=== PATIENT | female | born 1960 | race African-American/Black ===

== ENCOUNTER 2017-03-28 10:27 | Emergency (ER) | payer MEDICAID ==
[~2017-03-28] VITALS: Ht 167.6 cm; Wt 86.0 kg
[~2017-03-28 10:27] MED LIST: CARI350T PO; METO-396 PO; PRAV20TA57 PO; WARF10TA21 PO
[2017-03-28] MEDS ORDERED: ACETAMINOPHEN WITH CODEINE 300/30MG TABLET PO STA (11:31)
[2017-03-28 12:35] LABS: BASOPHILS % 0.7 % (0.0-2.0); HEMATOCRIT. 37.4 % (36.0-48.0); HEMOGLOBIN. 12.4 g/dL (12.0-16.0); LYMPHOCYTES % 17.8 % (20.0-50.0); MEAN CORPUSCULAR VOLUME 84.1 fL (81.0-99.0); MEAN PLATELET VOLUME 9.3 fl (7.4-10.4); MONOCYTES % 8.4 % (2.0-8.0); NEUTROPHILS % 72.1 % (40.0-76.0); PLATELET 219 x1000/uL (130-400); RED BLOOD CELL COUNT 4.45 mill/uL (4.2-5.4); RED CELL DISTRIBUTION WIDTH 14.2 % (11.6-14.6)
[2017-03-28 12:40] LABS: INR 3.5; PROTHROMBIN TIME 36.4 sec (9.4-11.6)
[2017-03-28 12:53] LABS: CARBON DIOXIDE 31 mEq/L (21-32); CHLORIDE 103 mEq/L (98-107)
[2017-03-28 13:05] LABS: TROPONIN I < 0.02 ng/mL (0.00-0.04)
[2017-03-28] MEDS ORDERED: POTASSIUM CHLORIDE 20MEQ TABLET SR PO ONE (13:45)
[2017-03-28 13:59] VITALS: BP 149/63
== END 2017-03-28 14:40 | disposition home or self-care (01) ==
LOC: ER 11:37
DX: R07.9 Chest pain, unspecified (principal); E87.6 Hypokalemia; I10 Essential (primary) hypertension; E78.00 Pure hypercholesterolemia, unspecified; E11.9 Type 2 diabetes mellitus without complications; J45.909 Unspecified asthma, uncomplicated; Z88.8 Allergy status to other drugs, medicaments and biological substances; Z79.01 Long term (current) use of anticoagulants
CPT/HCPCS: 36415; 71010; 80053; 84484; 85025; 85610; 93005; 99285; Z7610

== ENCOUNTER 2018-07-31 09:06 | Emergency (ER) | payer MEDICAID ==
[~2018-07-31] VITALS: Ht 167.6 cm; Wt 100.0 kg
[~2018-07-31 09:06] MED LIST changes: -CARI350T PO; +S350 PO
[2018-07-31] MEDS ORDERED: HYDROCODONE/ACETAMINOPHEN 5/325MG TABLET PO STA (11:04)
[2018-07-31 11:15] VITALS: BP 140/60
== END 2018-07-31 12:58 | disposition home or self-care (01) ==
LOC: ER 09:06
DX: S83.91XA Sprain of unspecified site of right knee, initial encounter (principal); E78.00 Pure hypercholesterolemia, unspecified; I11.9 Hypertensive heart disease without heart failure; Z79.899 Other long term (current) drug therapy; W50.2XXA Accidental twist by another person, initial encounter; Y93.89 Activity, other specified; Y92.89 Other specified places as the place of occurrence of the external cause; Y99.8 Other external cause status
CPT/HCPCS: 73560; 99283

== ENCOUNTER 2019-05-02 08:31 | Inpatient (IN) | payer MEDICAID ==
[~2019-05-02] VITALS: Ht 167.6 cm; Wt 87.1 kg
[~2019-05-02 08:31] MED LIST changes: +CARI350T28 PO; -S350 PO
[2019-05-02] MEDS ORDERED: SODIUM CHLORIDE 0.9% 1,000 ML IV ONE (17:03)
[2019-05-02] MEDS ORDERED: KETOROLAC 30MG/ML VIAL IV STA (17:03)
[2019-05-02 17:28] LABS: BASOPHILS % 0.4 % (0.0-2.0); EOSINOPHILS % 0.8 % (0.0-5.0); HEMATOCRIT. 38.7 % (36.0-48.0); LYMPHOCYTES % 16.2 % (20.0-50.0); MEAN CORPUSCULAR HEMOGLOBIN 28.7 pg (28.0-32.0); MEAN CORPUSCULAR VOLUME 85.6 fL (81.0-99.0); MEAN PLATELET VOLUME 9.3 fl (7.4-10.4); MONOCYTES % 7.4 % (2.0-8.0); NEUTROPHILS % 75.2 % (40.0-76.0); PLATELET 174 x1000/uL (130-400); RED BLOOD CELL COUNT 4.52 mill/uL (4.2-5.4); RED CELL DISTRIBUTION WIDTH 13.2 % (11.6-14.6)
[2019-05-02 17:31] LABS: CLARITY URINE TURBID (CLEAR); COLOR URINE YELLOW (YELLOW); KETONES URINE 1+ (NEGATIVE); LEUKOCYTE ESTERASE URINE 1+ (NEGATIVE); NITRITE URINE NEGATIVE (NEGATIVE); OCCULT BLOOD URINE 1+ (NEGATIVE); PH URINE 5.5 (4.5-8.0); PROTEIN URINE TRACE (NEGATIVE); SPECIFIC GRAVITY URINE 1.016 (1.005-1.030); UROBILINOGEN URINE 0.2 E.U./dL (0.2-1.0)
[2019-05-02 17:33] LABS: CHLORIDE 105 mEq/L (98-107)
[2019-05-02 20:31] LABS: INR 2.7; PARTIAL THROMBOPLASTIN TIME 46.6 sec (23.4-31.0); PROTHROMBIN TIME 26.8 sec (9.6-11.0)
[2019-05-02] MEDS ORDERED: MORPHINE SULFATE 4 MG/ML CPJ (NOT FOR IM USE) IV ONE (21:00)
[2019-05-02] MEDS ORDERED: ONDANSETRON HCL 4MG/2ML INJ IV ONE (21:00)
[2019-05-02] MEDS ORDERED: CEFTRIAXONE SODIUM 1 G/VIAL IM ONE (21:00)
[2019-05-03] MEDS ORDERED: MORPHINE SULFATE 2 MG/ML CPJ (NOT FOR IM USE) IV PRN (04:45)
[2019-05-03] MEDS ORDERED: ONDANSETRON HCL 4MG/2ML INJ IV PRN (09:30)
[2019-05-03] MEDS ORDERED: POTASSIUM CHLORIDE 20MEQ TABLET SR PO NR (09:30)
[2019-05-03] MEDS ORDERED: ACETAMINOPHEN 325MG TABLET PO PRN (09:30)
[2019-05-03 09:45] VITALS: BP 127/48
[2019-05-03] MEDS: MORPHINE SULFATE 2 MG/ML CPJ (NOT FOR IM USE) IV PRN ×3 (10:14→21:40)
[2019-05-03 12:00] VITALS: BP 121/52
[2019-05-03] MEDS ORDERED: WARF5TAB76 MT (12:01)
[2019-05-03] MEDS ORDERED: WARF10TA21 MT (12:01)
[2019-05-03] MEDS ORDERED: METO-385 MT (12:01)
[2019-05-03] MEDS ORDERED: PRAV40TA58 MT (12:02)
[2019-05-03 12:38] LABS: BASOPHILS % 0.7 % (0.0-2.0); EOSINOPHILS % 1.3 % (0.0-5.0); HEMATOCRIT. 36.4 % (36.0-48.0); HEMOGLOBIN. 12.2 g/dL (12.0-16.0); LYMPHOCYTES % 16.9 % (20.0-50.0); MEAN CORPUSCULAR HEMOGLOBIN 28.8 pg (28.0-32.0); MEAN CORPUSCULAR VOLUME 86.1 fL (81.0-99.0); MEAN PLATELET VOLUME 9.7 fl (7.4-10.4); MONOCYTES % 8.8 % (2.0-8.0); NEUTROPHILS % 72.3 % (40.0-76.0); PLATELET 162 x1000/uL (130-400); RED BLOOD CELL COUNT 4.23 mill/uL (4.2-5.4); RED CELL DISTRIBUTION WIDTH 13.5 % (11.6-14.6)
[2019-05-03 13:01] LABS: CHLORIDE 106 mEq/L (98-107)
[2019-05-03] MEDS ORDERED: METOPROLOL TARTRATE 50MG TABLET PO SCH (13:45)
[2019-05-03 16:00] VITALS: BP 118/55
[2019-05-03] MEDS ORDERED: NON FORMULARY PATIENT HOME MED XX SCH (16:00)
[2019-05-03] MEDS: SIMETHICONE 80MG TABLET CHEW PO SCH ×2 (17:25→23:39)
[2019-05-03] MEDS ORDERED: WARFARIN SODIUM 10MG TABLET PO NR (18:00)
[2019-05-03 20:00] VITALS: BP 112/48
[2019-05-03] MEDS: METOPROLOL TARTRATE 25MG TABLET PO SCH (21:39)
[2019-05-03] MEDS: ATORVASTATIN CALCIUM 40MG TABLET PO SCH (21:39)
[2019-05-03] MEDS: CEFTRIAXONE 1 G PREMIX 50 ML IV SCH (21:39)
[2019-05-04] VITALS (7 sets, daily range): BP systolic 102–129; BP diastolic 34–52
[2019-05-04] MEDS: SIMETHICONE 80MG TABLET CHEW PO SCH ×3 (05:37→17:26)
[2019-05-04 06:35] LABS: BASOPHILS % 0.6 % (0.0-2.0); EOSINOPHILS % 2.2 % (0.0-5.0); HEMOGLOBIN. 11.5 g/dL (12.0-16.0); LYMPHOCYTES % 21.1 % (20.0-50.0); MEAN CORPUSCULAR HEMOGLOBIN 29.3 pg (28.0-32.0); MEAN CORPUSCULAR VOLUME 86.1 fL (81.0-99.0); MEAN PLATELET VOLUME 10.3 fl (7.4-10.4); MONOCYTES % 8.3 % (2.0-8.0); NEUTROPHILS % 67.8 % (40.0-76.0); PLATELET 167 x1000/uL (130-400); RED BLOOD CELL COUNT 3.95 mill/uL (4.2-5.4); RED CELL DISTRIBUTION WIDTH 13.3 % (11.6-14.6)
[2019-05-04 07:30] LABS: CHLORIDE 105 mEq/L (98-107)
[2019-05-04] MEDS: METOPROLOL TARTRATE 25MG TABLET PO SCH ×2 (08:50→21:00)
[2019-05-04] MEDS: MORPHINE SULFATE 2 MG/ML CPJ (NOT FOR IM USE) IV PRN ×3 (08:50→20:10)
[2019-05-04 10:20] LABS: INR 2.5; PROTHROMBIN TIME 24.8 sec (9.6-11.0)
[2019-05-04] MEDS ORDERED: LACTULOSE 20G/30ML UDC PO SCH (13:00)
[2019-05-04] MEDS ORDERED: BISACODYL 10MG SUPP PR PRN (13:00)
[2019-05-04] MEDS ORDERED: NA PHOS,M-B/NA PHOS,DI-BA ENEMA 118ML PR PRN (13:00)
[2019-05-04] MEDS ORDERED: WARFARIN SODIUM 5MG TABLET PO NR (18:00)
[2019-05-04] MEDS: ATORVASTATIN CALCIUM 40MG TABLET PO SCH (20:09)
[2019-05-04] MEDS: CEFTRIAXONE 1 G PREMIX 50 ML IV SCH (20:09)
[2019-05-05] VITALS: BP 109/45
[2019-05-05] MEDS: SIMETHICONE 80MG TABLET CHEW PO SCH ×5 (00:18→23:03)
[2019-05-05 04:00] VITALS: BP 110/52
[2019-05-05] MEDS: MORPHINE SULFATE 2 MG/ML CPJ (NOT FOR IM USE) IV PRN ×2 (05:08→11:01)
[2019-05-05 06:38] LABS: CHLORIDE 105 mEq/L (98-107)
[2019-05-05 06:44] LABS: INR 2.3; PROTHROMBIN TIME 22.3 sec (9.6-11.0)
[2019-05-05 06:46] LABS: BASOPHILS % 0.5 % (0.0-2.0); EOSINOPHILS % 1.9 % (0.0-5.0); HEMATOCRIT. 36.6 % (36.0-48.0); HEMOGLOBIN. 12.3 g/dL (12.0-16.0); MEAN CORPUSCULAR HEMOGLOBIN 28.9 pg (28.0-32.0); MEAN CORPUSCULAR VOLUME 86.1 fL (81.0-99.0); MEAN PLATELET VOLUME 9.5 fl (7.4-10.4); MONOCYTES % 8.4 % (2.0-8.0); NEUTROPHILS % 69.2 % (40.0-76.0); PLATELET 205 x1000/uL (130-400); RED BLOOD CELL COUNT 4.25 mill/uL (4.2-5.4); RED CELL DISTRIBUTION WIDTH 13.4 % (11.6-14.6)
[2019-05-05 08:06] VITALS: BP 125/42
[2019-05-05] MEDS: METOPROLOL TARTRATE 25MG TABLET PO SCH ×2 (08:36→21:10)
[2019-05-05] MEDS ORDERED: HYDROCODONE/ACETAMINOPHEN 5/325MG TABLET PO PRN (10:45)
[2019-05-05 12:09] VITALS: BP 119/51
[2019-05-05 16:00] VITALS: BP 121/51
[2019-05-05] MEDS ORDERED: WARFARIN SODIUM 10MG TABLET PO NR (18:00)
[2019-05-05 20:00] VITALS: BP 131/62
[2019-05-05] MEDS: CEFTRIAXONE 1 G PREMIX 50 ML IV SCH (21:08)
[2019-05-05] MEDS: HYDROCODONE/ACETAMINOPHEN 5/325MG TABLET PO PRN (21:09)
[2019-05-05] MEDS: ATORVASTATIN CALCIUM 40MG TABLET PO SCH (21:09)
[2019-05-06] VITALS: BP 112/51
[2019-05-06 04:00] VITALS: BP 117/51
[2019-05-06] MEDS: SIMETHICONE 80MG TABLET CHEW PO SCH ×2 (05:47→12:00)
[2019-05-06 07:37] LABS: INR 2.2
[2019-05-06 08:00] VITALS: BP 123/56
[2019-05-06] MEDS: METOPROLOL TARTRATE 25MG TABLET PO SCH (08:36)
[2019-05-06] MEDS: MORPHINE SULFATE 2 MG/ML CPJ (NOT FOR IM USE) IV PRN (08:37)
[2019-05-06 12:00] VITALS: BP 96/45
[2019-05-06] MEDS ORDERED: HYDR-4009 MT (12:11)
[2019-05-06 13:53] VITALS: BP 123/56
[2019-05-06] MEDS: HYDROCODONE/ACETAMINOPHEN 5/325MG TABLET PO PRN (13:53)
[2019-05-06] MEDS ORDERED: WARFARIN SODIUM 7.5MG TABLET PO SCH (14:29)
== END 2019-05-06 12:04 | disposition home or self-care (01) | DRG 351 ==
LOC: ER 08:41 → 5WST 21:51 → EDBEDREQ 21:54 → ENRESERV 05-03 07:47
PROVIDERS: ADMIT Internal Medicine; ATTEND Internal Medicine
DX: M79.81 Nontraumatic hematoma of soft tissue (principal); E83.51 Hypocalcemia; E78.5 Hyperlipidemia, unspecified; N39.0 Urinary tract infection, site not specified; E87.6 Hypokalemia; E78.00 Pure hypercholesterolemia, unspecified; I10 Essential (primary) hypertension; K57.90 Diverticulosis of intestine, part unspecified, without perforation or abscess without bleeding; T45.515A Adverse effect of anticoagulants, initial encounter; Y92.89 Other specified places as the place of occurrence of the external cause; Z79.899 Other long term (current) drug therapy; Z79.01 Long term (current) use of anticoagulants; Z95.2 Presence of prosthetic heart valve
CPT/HCPCS: 36415; 71045; 74176; 80048; 80053; 81003; 83880; 84484; 85025; 93005; 93306; 96361; 96365; 96372; 96375; 96376; 99285; J0696; J1885; J2270; J2405; J7030

== ENCOUNTER 2019-11-25 22:14 | Emergency (ER) | payer BC, MEDICAID ==
[~2019-11-25] VITALS: Ht 167.6 cm; Wt 90.0 kg
[~2019-11-25 22:14] MED LIST changes: +HYDR-4009 MT; +METO-385 MT; +PRAV40TA58 MT; +WARF10TA21 MT; +WARF5TAB76 MT
[2019-11-25] MEDS ORDERED: ONDANSETRON HCL 4MG/2ML INJ IV STA (22:52)
[2019-11-25] MEDS ORDERED: MAGNESIUM/ALUMINUM HYDROXIDE/SIMETHICONE 30ML UDC PO ONE (23:00)
[2019-11-25] MEDS ORDERED: VISCOUS LIDOCAINE 2% 15 ML UDC PO ONE (23:00)
[2019-11-25] MEDS ORDERED: ASPIRIN 81MG TABLET PO ONE (23:00)
[2019-11-25] MEDS ORDERED: MECLIZINE 25MG TABLET PO ONE (23:30)
[2019-11-25] MEDS ORDERED: SODIUM CHLORIDE 0.9% 500 ML IV ONE (23:30)
[2019-11-25 23:42] LABS: BASOPHILS % 0.6 % (0.0-2.0); EOSINOPHILS % 0.6 % (0.0-5.0); HEMOGLOBIN. 11.9 g/dL (12.0-16.0); LYMPHOCYTES % 8.4 % (20.0-50.0); MEAN CORPUSCULAR HEMOGLOBIN 28.8 pg (28.0-32.0); MEAN CORPUSCULAR VOLUME 84.8 fL (81.0-99.0); MEAN PLATELET VOLUME 9.1 fl (7.4-10.4); NEUTROPHILS % 86.4 % (40.0-76.0); PLATELET 184 x1000/uL (130-400); RED BLOOD CELL COUNT 4.12 mill/uL (4.2-5.4)
[2019-11-25 23:48] LABS: CHLORIDE 107 mEq/L (98-107)
[2019-11-26 03:00] VITALS: BP 133/73
== END 2019-11-26 08:25 | disposition short-term general hospital (02) ==
LOC: ER 22:14
DX: R07.89 Other chest pain (principal); R11.2 Nausea with vomiting, unspecified; R42 Dizziness and giddiness; E78.00 Pure hypercholesterolemia, unspecified; I10 Essential (primary) hypertension; Z98.890 Other specified postprocedural states; Z79.899 Other long term (current) drug therapy
CPT/HCPCS: 36415; 71045; 80053; 83880; 84484; 85025; 93005; 96374; 99285; J2405; J7040; J8597; Z7610

== ENCOUNTER 2020-01-18 17:32 | Emergency (ER) | payer MEDICAID, MEDICARE ==
[~2020-01-18] VITALS: Ht 167.6 cm; Wt 88.0 kg
[2020-01-18] MEDS ORDERED: MORPHINE SULFATE 4 MG/ML CPJ (NOT FOR IM USE) IV STA (18:08)
[2020-01-18] MEDS: NITROGLYCERIN 0.4MG TABLET SL SL PRN ×2 (18:21→20:03)
[2020-01-18 19:07] LABS: BASOPHILS % 0.4 % (0.0-2.0); HEMATOCRIT. 37.3 % (36.0-48.0); HEMOGLOBIN. 12.5 g/dL (12.0-16.0); LYMPHOCYTES % 15.9 % (20.0-50.0); MEAN CORPUSCULAR HEMOGLOBIN 29.1 pg (28.0-32.0); MEAN CORPUSCULAR VOLUME 86.7 fL (81.0-99.0); MEAN PLATELET VOLUME 9.5 fl (7.4-10.4); MONOCYTES % 7.1 % (2.0-8.0); NEUTROPHILS % 75.6 % (40.0-76.0); PLATELET 226 x1000/uL (130-400); RED CELL DISTRIBUTION WIDTH 14.8 % (11.6-14.6)
[2020-01-18 19:17] LABS: CHLORIDE 105 mEq/L (98-107)
[2020-01-18] MEDS ORDERED: ASPIRIN 325MG TABLET PO ONE (19:45)
[2020-01-18] MEDS ORDERED: HYDROCODONE/ACETAMINOPHEN 5/325MG TABLET PO ONE (22:30)
[2020-01-18 23:14] VITALS: BP 125/68
== END 2020-01-18 23:16 | disposition home or self-care (01) ==
LOC: ER 17:32
DX: R07.89 Other chest pain (principal); E78.00 Pure hypercholesterolemia, unspecified; I10 Essential (primary) hypertension; Z79.899 Other long term (current) drug therapy; Z98.890 Other specified postprocedural states
CPT/HCPCS: 36415; 71045; 80053; 83880; 84484; 85025; 85379; 93005; 96374; 99285; J2270

== ENCOUNTER 2021-05-21 10:16 | Emergency (ER) | payer MEDICAID ==
[~2021-05-21] VITALS: Ht 167.6 cm; Wt 95.5 kg
[2021-05-21 10:27] VITALS: BP 152/55
[2021-05-21 11:10] LABS: CHLORIDE 107 mEq/L (98-107)
[2021-05-21 11:11] LABS: BASOPHILS % 0.5 % (0.0-2.0); EOSINOPHILS % 1.5 % (0.0-5.0); HEMATOCRIT. 35.3 % (36.0-48.0); LYMPHOCYTES % 15.4 % (20.0-50.0); MEAN CORPUSCULAR HEMOGLOBIN 29.4 pg (28.0-32.0); MEAN CORPUSCULAR VOLUME 86.5 fL (81.0-99.0); MEAN PLATELET VOLUME 8.8 fl (7.4-10.4); MONOCYTES % 6.7 % (2.0-8.0); NEUTROPHILS % 75.9 % (40.0-76.0); PLATELET 225 x1000/uL (130-400); RED BLOOD CELL COUNT 4.07 mill/uL (4.2-5.4); RED CELL DISTRIBUTION WIDTH 13.8 % (11.6-14.6)
[2021-05-21 11:12] LABS: INR 1.8; PROTHROMBIN TIME 18.2 sec (9.6-11.0)
[2021-05-21] MEDS ORDERED: SODIUM CHLORIDE 0.9% 1,000 ML IV ONE (12:00)
[2021-05-21] MEDS ORDERED: DIAZEPAM 5 MG TABLET PO ONE (12:15)
[2021-05-21 14:17] LABS: CLARITY URINE CLEAR (CLEAR); COLOR URINE YELLOW (YELLOW); KETONES URINE NEGATIVE (NEGATIVE); LEUKOCYTE ESTERASE URINE NEGATIVE (NEGATIVE); NITRITE URINE NEGATIVE (NEGATIVE); OCCULT BLOOD URINE NEGATIVE (NEGATIVE); PROTEIN URINE NEGATIVE (NEGATIVE); UROBILINOGEN URINE 0.2 E.U./dL (0.2-1.0)
[2021-05-21 14:39] LABS: *AMPHETAMINES SCREEN URINE NEGATIVE (NEGATIVE); *BARBITURATES SCREEN URINE NEGATIVE (NEGATIVE); *BENZODIAZEPINES SCREEN URINE NEGATIVE (NEGATIVE); *COCAINE SCREEN URINE NEGATIVE (NEGATIVE); METHADONE URINE SCREEN NEGATIVE (NEGATIVE)
[2021-05-21 14:40] LABS: CANNABINOID URINE SCREEN PRESUMTIVE POSITIVE (NEGATIVE); OPIATES URINE SCREEN NEGATIVE (NEGATIVE); PHENCYCLIDINE URINE SCREEN NEGATIVE (NEGATIVE)
[2021-05-21] MEDS ORDERED: METH-773 MT (14:47)
== END 2021-05-21 14:52 | disposition home or self-care (01) ==
LOC: ER 10:16
DX: M54.12 Radiculopathy, cervical region (principal); M54.42 Lumbago with sciatica, left side; I10 Essential (primary) hypertension; Z95.2 Presence of prosthetic heart valve; D68.9 Coagulation defect, unspecified; Z79.01 Long term (current) use of anticoagulants
CPT/HCPCS: 36415; 70450; 71045; 72125; 72131; 80053; 80305; 81003; 83690; 84484; 85025; 85610; 99285; J7030

== ENCOUNTER 2023-02-02 10:06 | Emergency (ER) | payer MEDICAID, MEDICARE, OTHER ==
[~2023-02-02] VITALS: Ht 167.6 cm; Wt 92.0 kg
[~2023-02-02 10:06] MED LIST changes: +METH-773 MT
[2023-02-02 10:10] VITALS: TEMP 98.4; O2SAT 100
[2023-02-02] MEDS ORDERED: KETOROLAC 30MG/ML VIAL IM ONE (10:30)
[2023-02-02 12:45] VITALS: BP 146/49; PULSE 74; RESP 18
[2023-02-02] MEDS ORDERED: KETOROLAC 30MG/ML VIAL IM NR (12:45)
[2023-02-02] MEDS ORDERED: NAPR-1176 MT (14:37)
== END 2023-02-02 15:48 | disposition home or self-care (01) ==
LOC: ER 10:06
DX: S00.83XA Contusion of other part of head, initial encounter (principal); E78.00 Pure hypercholesterolemia, unspecified; I10 Essential (primary) hypertension; Z98.890 Other specified postprocedural states; W18.39XA Other fall on same level, initial encounter; Y93.89 Activity, other specified; Y92.89 Other specified places as the place of occurrence of the external cause; Y99.8 Other external cause status
CPT/HCPCS: 73080; 73562; 70450; 96372; 99285; J1885; Z7610